=== PATIENT | male | born 1985 | race Caucasian/White ===

== ENCOUNTER → 2022-01-09 | Outpatient (CLI) | payer OTHER, SELFPAY ==
--- NOTE | 2022-01-09 08:00 | VAS_PTH ---
PATIENT: KEMI CARDONA LOC: [facility] U#:[id number] AGE/SX: 36/M ROOM: RE01/09/[address]: Dr. Yong Grove MD : 1985 BED: DIS: 01/09/2022 SPEC #: [id number] RECD: 01/09/22 09:19 STATUS: LORNE VAUGHNMumtaz #: [id number] RINA: 01/09/22 08:[address]: Yong Grove DEPT: SURGICAL PATHOLOGY RECD BY: Jose Tidwell Tissues: A - Vas deferens, NOS B - Vas deferens, NOS Procedures: Surgery Specimen Level II HEADER OPERATION: Bilateral partial vasectomy PRE-OP DIAGNOSIS: Sterilization TISSUE SUBMITTED: A ? Right vas deferens, B ? Left vas deferens MICROSCOPIC DIAGNOSIS A. Right vas deferens, partial vasectomy: Completely transected segment of vas deferens, no pathologic diagnosis. B. Left vas deferens, partial vasectomy: Completely transected segment of vas deferens, no pathologic diagnosis. SANDY:sarah 01/10/2022 MICROSCOPIC DESCRIPTION Slides are reviewed. GROSS DESCRIPTION A - Received is one container designated right vas deferens. The specimen consists of a tubular segment of ho soft tissue measuring 0.5 cm in length and 0.2 cm in diameter. The specimen is sectioned and submitted entirely in one cassette. B - Received is one container designated left vas deferens. The specimen consists of a tubular segment of ho soft tissue measuring 0.6 cm in length and 0.3 cm in diameter. The specimen is sectioned and submitted entirely in one cassette. / Jovi 01/09/2022 TC:4 CPT: 46613 x2
== END | disposition home or self-care (01) ==
LOC: LABSPEC 09:21
PROVIDERS: Visit Provider Surgery
DX: Z30.2 Encounter for sterilization (principal)
CPT/HCPCS: 88302

== ENCOUNTER → 2022-02-06 | Outpatient (CLI) | payer OTHER, SELFPAY ==
[2022-02-06 21:57] LABS: Semen Analysis Post Vas ABSENT
[2022-02-08 09:20] LABS: Pathologist Review Reviewed
== END | disposition home or self-care (01) ==
LOC: LABSPEC 16:29
PROVIDERS: Referring Provider Surgery; Visit Provider Surgery
DX: Z30.2 Encounter for sterilization (principal)
CPT/HCPCS: 89321

== ENCOUNTER → 2022-02-18 | Outpatient (CLI) | payer OTHER, SELFPAY ==
[2022-02-19 10:46] LABS: Semen Analysis Post Vas PRELIMINARY PRESENT
[2022-02-19 13:46] LABS: Pathologist Review Reviewed
== END | disposition home or self-care (01) ==
LOC: LABSPEC 13:38
PROVIDERS: Referring Provider Surgery; Visit Provider Surgery
DX: Z30.2 Encounter for sterilization (principal)
CPT/HCPCS: 89321